=== PATIENT | female | born 1945 | race Caucasian/White ===

== ENCOUNTER 2018-01-10 11:44 | Inpatient (IN) ==
[2018-01-10] MEDS ORDERED: SODIUM CHLORIDE 0.9% 1,000 ML IV SCH (12:00)
[2018-01-10] MEDS ORDERED: CHLORHEXIDINE 4% SOLN 118 ML BOTTLE TOP SCH (15:00)
[2018-01-10] MEDS: CLORAZEPATE 7.5 MG TABLET PO SCH (16:18)
[2018-01-10 16:52] LABS: Basophils # 0.1 10*3/uL (0.0-0.2); Basophils % 0.5 % (0.0-0.8); Eosinophils # 0.2 10*3/uL (0.0-0.87); Eosinophils % 1.2 % (0.00-10.9); Hematocrit 28.1 VOL% (35.7-47.0); Immature Granulocytes % 0.7 %; Immature Granulocytes Absolute 0.09 #; Lymphocytes # 2.9 10*3/uL (1.4-4.0); Lymphocytes % 22.1 % (21.3-54.2); Mean Corpuscular Hemoglobin 31 PG (27-34); Mean Corpuscular Volume 96.6 FL (87-102); Mean Platelet Volume 10.6 FL (9.6-12.0); Monocytes # 1.6 10*3/uL (0.11-0.8); Monocytes % 11.8 % (1.7-12.7); Neutrophils # 8.4 10*3/uL (1.4-7.4); Neutrophils % 63.7 % (38.7-73.9); Platelet Count 195 T/CUMM (130-400); Red Blood Count 2.91 MC/CUMM (3.8-5.5); Red Cell Distribution Width 13.1 % (9.3-17.3); White Blood Count 13.1 T/CUMM (4-12)
[2018-01-10 17:11] LABS: Alanine Aminotransferase 25 U/L (13-56); Albumin 3.2 G/DL (3.4-5.0); Alkaline Phosphatase 75 U/L (45-117); Aspartate Amino Transferase 17 U/L (0-37); Bilirubin,Total < 0.39 MG/DL (0.2-1.0); Blood Urea Nitrogen 16 MG/DL (7-18); Calcium 8.3 MG/DL (8.5-10.1); Glucose 109 MG/DL (74-106); Osmolality,Calculated 282.3 MOS/KG (273-304); Potassium 4.2 MMOL/L (3.5-5.1); Sodium 141 MMOL/L (136-145); Total Protein 6.3 G/DL (6.4-8.3)
[2018-01-10] MEDS: CHLORHEXIDINE 0.12% ORAL RINSE 60 ML BOTTLE SWISH/SPIT SCH (22:09)
[2018-01-11] MEDS: ENOXAPARIN 40 MG/0.4 ML SYRINGE SUBCUT SCH (06:09)
[2018-01-11] MEDS ORDERED: SODIUM CHLORIDE 0.9% 1,000 ML IV PRN (07:24)
[2018-01-11] MEDS: CLORAZEPATE 7.5 MG TABLET PO SCH (08:48)
[2018-01-11] MEDS: CHLORHEXIDINE 0.12% ORAL RINSE 60 ML BOTTLE SWISH/SPIT SCH ×2 (08:48→21:24)
[2018-01-11] MEDS: CHLORHEXIDINE 4% SOLN 118 ML BOTTLE TOP SCH ×3 (13:31→21:23)
[2018-01-11 17:53] LABS: Hematocrit 32.9 VOL% (35.7-47.0); Hemoglobin 11.2 GM/DL (12.0-16.0)
[2018-01-12] MEDS ORDERED: HEPARIN/NACL 0.9% 2 UNITS/ML 500 ML IV ONE ×2 (05:15→11:47)
[2018-01-12] MEDS ORDERED: TRANEXAMIC ACID 1,000 MG/10 ML VIAL ONE (05:15)
[2018-01-12] MEDS ORDERED: NITROGLYCERIN DRIP 50 MG/250 ML BOTTLE IV ONE ×3 (05:15→11:48)
[2018-01-12] MEDS ORDERED: VANCOMYCIN 1,000 MG VIAL ONE (05:23)
[2018-01-12] MEDS ORDERED: TISSUE ADHESIVE 1 EACH APPLICATOR TOP ONE (05:23)
[2018-01-12] MEDS ORDERED: PAPAVERINE 60 MG/2 ML VIAL ONE (05:23)
[2018-01-12] MEDS ORDERED: SCOPOLAMINE 1.5 MG PATCH TRANSDERM ONE (05:30)
[2018-01-12 05:31] LABS: Hematocrit 35.1 VOL% (35.7-47.0); Hemoglobin 11.7 GM/DL (12.0-16.0)
[2018-01-12] MEDS: ENOXAPARIN 40 MG/0.4 ML SYRINGE SUBCUT SCH (05:43)
[2018-01-12] MEDS: CHLORHEXIDINE 4% SOLN 118 ML BOTTLE TOP SCH ×2 (05:43→09:09)
[2018-01-12] MEDS: CHLORHEXIDINE 0.12% ORAL RINSE 60 ML BOTTLE SWISH/SPIT SCH ×3 (05:44→20:24)
[2018-01-12] MEDS ORDERED: CEFUROXIME INJ 1,500 MG in SYRINGE 1 EACH IV ONE (06:00)
[2018-01-12] MEDS ORDERED: CALCIUM CHLORIDE 1,000 MG/10 ML SYRINGE IV ONE (07:10)
[2018-01-12] MEDS ORDERED: SODIUM BICARBONATE 50 MEQ/50 ML SYRINGE IV ONE ×2 (07:10→10:39)
[2018-01-12] MEDS ORDERED: ALBUMIN 5% 12.5 GM/250 ML VIAL IV ONE (07:11)
[2018-01-12] MEDS ORDERED: EPINEPHrine 1 MG/10 ML SYRINGE ONE (07:11)
[2018-01-12] MEDS ORDERED: POTASSIUM CHLORIDE RIDER 100 ML IV ONE (07:11)
[2018-01-12 07:51] LABS: ABG Base Excess 0.7 MMOL/L (-2.5-2.5); ABG HCO3 25.1 MMOL/L (20-26); ABG Oxygen Saturation 99.6 % (95-100); ABG PCO2 34.7 MM HG (35-48); ABG PH 7.453 (7.35-7.45); ABG TCO2 21.9 MMOL/L (23-27); Glucose Heart Surgery 134 MG/DL (74-106); Hematocrit Heart Surgery 31.9 PERCENT (37-47); Hemoglobin Heart Surgery 10.3 G/DL (12.0-16.0); Ionized Calcium Arterial 1.11 MMOL/L (1.21-1.46); PCO2 Patient Temp Arterial 34.7 MMHG; PH Patient Temp Arterial 7.453; Patient Temperature 37 CELCIUS; Potassium Heart/CVR 3.5 MMOL/L (3.5-5.1); Sodium Heart/CVR 139 MMOL/L (135-145)
[2018-01-12] MEDS: CLORAZEPATE 7.5 MG TABLET PO SCH (09:09)
[2018-01-12 09:19] LABS: PCO2 Patient Temp Venous 26.1 MM HG; PH Patient Temp Venous 7.549; PO2 Patient Temp Venous 34.8 MM HG; Potassium Heart/CVR 4.4 MMOL/L (3.5-5.1); VBG Base Excess 0.7 MEQ/L (0-4); VBG HCO3 24.9 MEQ/L (24-28); VBG Oxygen Saturation 83.7 %; VBG PCO2 30.1 MMHG (41-51); VBG PH 7.503; VBG PO2 42.7 MMHG (17-40)
[2018-01-12 09:20] LABS: Hematocrit Heart Surgery 17.3 PERCENT (37-47); Hemoglobin Heart Surgery 5.5 G/DL (12.0-16.0)
[2018-01-12 09:53] LABS: Hematocrit Heart Surgery 19.5 PERCENT (37-47); PCO2 Patient Temp Venous 35.2 MM HG; PH Patient Temp Venous 7.445; PO2 Patient Temp Venous 39.4 MM HG; VBG Base Excess 0.3 MEQ/L (0-4); VBG HCO3 24.5 MEQ/L (24-28); VBG Oxygen Saturation 75.8 %; VBG PCO2 35.2 MMHG (41-51); VBG PH 7.445; VBG PO2 39.4 MMHG (17-40)
[2018-01-12 09:54] LABS: Hemoglobin Heart Surgery 6.2 G/DL (12.0-16.0)
[2018-01-12] MEDS ORDERED: THROMBIN TOPICAL (RECOMBINANT) 5,000 UNIT VIAL TOP ONE (10:06)
[2018-01-12 10:21] LABS: ABG Base Excess -3.4 MMOL/L (-2.5-2.5); ABG HCO3 21.6 MMOL/L (20-26); ABG Oxygen Saturation 99.7 % (95-100); ABG PCO2 37.7 MM HG (35-48); ABG PH 7.366 (7.35-7.45); ABG TCO2 20.4 MMOL/L (23-27); Glucose Heart Surgery 329 MG/DL (74-106); Hematocrit Heart Surgery 22.7 PERCENT (37-47); Hemoglobin Heart Surgery 7.3 G/DL (12.0-16.0); Ionized Calcium Arterial 1.22 MMOL/L (1.21-1.46); PCO2 Patient Temp Arterial 37.7 MMHG; PH Patient Temp Arterial 7.366; Patient Temperature 37 CELCIUS; Potassium Heart/CVR 3.9 MMOL/L (3.5-5.1); Sodium Heart/CVR 131 MMOL/L (135-145)
[2018-01-12] MEDS ORDERED: PROTAMINE SULFATE 250 MG/25 ML VIAL IV ONE (10:39)
[2018-01-12] MEDS ORDERED: HEPARIN 10,000 UNIT/10 ML VIAL ONE (10:39)
[2018-01-12] MEDS ORDERED: methylPREDNISolone SOD SUC 1,000 MG/8 ML VIAL ONE (10:39)
[2018-01-12] MEDS ORDERED: ALBUMIN 25% 25 GM/100 ML VIAL IV ONE (10:39)
[2018-01-12] MEDS ORDERED: DEXTROSE 5% KCL 20 MEQ 20 MEQ/1,000 ML BAG IV ONE (10:39)
[2018-01-12] MEDS ORDERED: MAGNESIUM SULFATE 1 GM/2 ML VIAL ONE (10:39)
[2018-01-12] MEDS ORDERED: PROTAMINE SULFATE 50 MG/5 ML VIAL IV ONE (10:40)
[2018-01-12] MEDS ORDERED: FUROSEMIDE 20 MG/2 ML VIAL ONE (10:40)
[2018-01-12] MEDS ORDERED: MANNITOL 12.5 GM/50 ML VIAL IV ONE (10:40)
[2018-01-12] MEDS: SODIUM CHLORIDE 0.9% 1,000 ML IV SCH ×2 (10:51→20:24)
[2018-01-12] MEDS ORDERED: DEXTROSE 50% 25 GM/50 ML VIAL IV PRN ×2 (11:22)
[2018-01-12] MEDS ORDERED: SODIUM CHLORIDE 0.9% 250 ML IV PRN (11:22)
[2018-01-12] MEDS ORDERED: MIDAZOLAM 2 MG/2 ML VIAL IV PRN (11:22)
[2018-01-12] MEDS ORDERED: CALCIUM CHLORIDE 1,000 MG/10 ML SYRINGE IV PRN (11:22)
[2018-01-12] MEDS ORDERED: MORPHINE 10 MG/1 ML VIAL IV PRN (11:22)
[2018-01-12] MEDS ORDERED: CHLORHEXIDINE 4% SOLN 118 ML BOTTLE TOP PRN (11:22)
[2018-01-12] MEDS ORDERED: ACETAMINOPHEN 650 MG SUPP RECTAL PRN (11:22)
[2018-01-12] MEDS ORDERED: MAGNESIUM SULF RIDER 4 GM in PREMIX 1 EACH IV PRN (11:22)
[2018-01-12] MEDS ORDERED: ONDANSETRON 4 MG/2 ML VIAL IV PRN (11:22)
[2018-01-12] MEDS ORDERED: INSULIN REGULAR DRIP 100 ML IV SCH (11:30)
[2018-01-12] MEDS ORDERED: CHLORHEXIDINE 0.12% ORAL RINSE 60 ML BOTTLE SWISH/SPIT SCH (11:30)
[2018-01-12] MEDS ORDERED: CALCIUM CHLORIDE 1,000 MG/10 ML VIAL IV ONE (11:47)
[2018-01-12] MEDS ORDERED: SEVOFLURANE 1 UNIT/15 MINUTE INH ONE (11:47)
[2018-01-12 11:48] LABS: ABG Base Excess -0.3 MMOL/L (-2.5-2.5); ABG HCO3 24.1 MMOL/L (20-26); ABG Oxygen Saturation 98.4 % (95-100); ABG PCO2 41.3 MM HG (35-48); ABG PH 7.384 (7.35-7.45); ABG TCO2 22.6 MMOL/L (23-27); Glucose Heart Surgery 258 MG/DL (74-106); Hematocrit Heart Surgery 29.5 PERCENT (37-47); Hemoglobin Heart Surgery 9.5 G/DL (12.0-16.0); Potassium Heart/CVR 3.4 MMOL/L (3.5-5.1)
[2018-01-12] MEDS ORDERED: ePHEDrine 50 MG/ML AMP ONE (11:48)
[2018-01-12] MEDS ORDERED: ESMOLOL 100 MG/10 ML VIAL IV ONE (11:48)
[2018-01-12] MEDS ORDERED: PHENYLEPHRINE 10 MG/1 ML VIAL IV ONE (11:48)
[2018-01-12] MEDS ORDERED: MIDAZOLAM 10 MG/2 ML VIAL ONE (11:48)
[2018-01-12] MEDS ORDERED: SODIUM CHLORIDE 0.9% 2,000 ML IV ONE (11:48)
[2018-01-12] MEDS ORDERED: LACTATED RINGERS 2,000 ML IV ONE (11:48)
[2018-01-12] MEDS ORDERED: VECURONIUM 10 MG VIAL IV ONE (11:48)
[2018-01-12] MEDS ORDERED: ETOMIDATE 40 MG/20 ML VIAL IV ONE (11:48)
[2018-01-12] MEDS ORDERED: SODIUM CHLORIDE 0.9% 200 ML IV ONE (11:48)
[2018-01-12 11:51] LABS: Red Cell Distribution Width 15.1 % (9.3-17.3)
[2018-01-12 11:56] LABS: Basophils # 0.1 10*3/uL (0.0-0.2); Basophils % 0.4 % (0.0-0.8); Eosinophils # 0.1 10*3/uL (0.0-0.87); Eosinophils % 0.6 % (0.00-10.9); Hematocrit 27.6 VOL% (35.7-47.0); Immature Granulocytes % 1.5 %; Immature Granulocytes Absolute 0.29 #; Lymphocytes # 1.8 10*3/uL (1.4-4.0); Lymphocytes % 9.6 % (21.3-54.2); Mean Corpuscular HGB Conc 34.4 GM/DL (32-36); Mean Corpuscular Hemoglobin 31 PG (27-34); Mean Corpuscular Volume 90.2 FL (87-102); Mean Platelet Volume 10.2 FL (9.6-12.0); Monocytes # 1.2 10*3/uL (0.11-0.8); Monocytes % 6.4 % (1.7-12.7); Neutrophils # 15.3 10*3/uL (1.4-7.4); Neutrophils % 81.5 % (38.7-73.9); Red Blood Count 3.06 MC/CUMM (3.8-5.5)
[2018-01-12 11:59] LABS: Hemoglobin 9.5 GM/DL (12.0-16.0); Platelet Count 132 T/CUMM (130-400); White Blood Count 18.8 T/CUMM (4-12)
[2018-01-12 12:02] LABS: INR 1.1; PT Patient Result 11.8 SECS; Partial Thromboplastin Time 28.1 SECS (0-40)
[2018-01-12 12:11] LABS: Band Neutrophils 14 % (0-10); Lymphocytes 12 % (20-55); Segmented Neutrophils 70 % (50-85); Total Cells Counted 100
[2018-01-12 12:12] LABS: Lactic Acid 4.2 MMOL/L (0.4-2.0); Microcytosis 1+; Platelet Estimate Adequate
[2018-01-12 12:19] LABS: Blood Urea Nitrogen 14 MG/DL (7-18); Calcium 7.3 MG/DL (8.5-10.1); Glucose 235 MG/DL (74-106); Osmolality,Calculated 285.5 MOS/KG (273-304); Potassium 3.6 MMOL/L (3.5-5.1); Sodium 139 MMOL/L (136-145)
[2018-01-12] MEDS: POTASSIUM CHLORIDE RIDER 20 MEQ in PREMIX 1 EACH IV PRN ×3 (12:20→22:30)
[2018-01-12] MEDS: SODIUM CHLORIDE 0.45% 1,000 ML IV SCH ×3 (12:21→23:26)
[2018-01-12] MEDS ORDERED: METOPROLOL TARTRATE 5 MG/5 ML VIAL IV ONE (13:12)
[2018-01-12] MEDS: NITROGLYCERIN DRIP 50 MG/250 ML BOTTLE IV PRN ×2 (13:15→23:04)
[2018-01-12] MEDS: ALBUMIN 5% 12.5 GM in PREMIX 1 EACH IV PRN ×3 (14:37→16:24)
[2018-01-12] MEDS ORDERED: ASPIRIN 325 MG TABLET PO ONE (14:46)
[2018-01-12] MEDS ORDERED: CALCIUM GLUCONATE 2,000 MG in SODIUM CHLORIDE 0.9% 100 ML IV ONE (14:59)
[2018-01-12 15:28] LABS: ABG Base Excess -0.5 MMOL/L (-2.5-2.5); ABG HCO3 24.2 MMOL/L (20-26); ABG Oxygen Saturation 98.2 % (95-100); ABG PO2 147.6 MM HG (80-95); ABG TCO2 25.4 MMOL/L (23-27); Glucose Heart Surgery 184 MG/DL (74-106); Hemoglobin Heart Surgery 9.7 G/DL (12.0-16.0); Potassium Heart/CVR 4.1 MMOL/L (3.5-5.1)
[2018-01-12] MEDS: INSULIN REGULAR 100 UNIT/ML IV PRN ×2 (15:57→20:21)
[2018-01-12] MEDS ORDERED: LACTATED RINGERS 500 ML IV ONE (16:00)
[2018-01-12] MEDS: MORPHINE 4 MG/1 ML VIAL IV PRN ×3 (16:51→22:45)
[2018-01-12 18:20] LABS: ABG Base Excess -0.3 MMOL/L (-2.5-2.5); ABG HCO3 24.3 MMOL/L (20-26); ABG Oxygen Saturation 96.8 % (95-100); ABG PCO2 39.3 MM HG (35-48); ABG PH 7.409 (7.35-7.45); ABG PO2 99.7 MM HG (80-95); ABG TCO2 25.5 MMOL/L (23-27); Glucose Heart Surgery 152 MG/DL (74-106); Hemoglobin Heart Surgery 8.7 G/DL (12.0-16.0); Potassium Heart/CVR 3.9 MMOL/L (3.5-5.1)
[2018-01-12] MEDS: CEFUROXIME INJ 1,500 MG in SYRINGE 1 EACH IV SCH (20:15)
[2018-01-12] MEDS: POTASSIUM CHLORIDE RIDER 10 MEQ in PREMIX 1 EACH IV PRN (23:23)
[2018-01-13] MEDS: SODIUM CHLORIDE 0.45% 1,000 ML IV SCH ×2 (01:11→07:30)
[2018-01-13 02:45] LABS: Basophils % 0.2 % (0.0-0.8); Hemoglobin 7.9 GM/DL (12.0-16.0); Immature Granulocytes % 1.5 %; Immature Granulocytes Absolute 0.25 #; Lymphocytes # 1.1 10*3/uL (1.4-4.0); Lymphocytes % 6.2 % (21.3-54.2); Mean Corpuscular HGB Conc 34.3 GM/DL (32-36); Mean Corpuscular Hemoglobin 30 PG (27-34); Mean Corpuscular Volume 88.5 FL (87-102); Mean Platelet Volume 10.5 FL (9.6-12.0); Monocytes # 0.9 10*3/uL (0.11-0.8); Monocytes % 5.1 % (1.7-12.7); Neutrophils # 14.8 10*3/uL (1.4-7.4); Platelet Count 124 T/CUMM (130-400); Red Cell Distribution Width 15.4 % (9.3-17.3)
[2018-01-13] MEDS: MAGNESIUM SULF RIDER 2 GM in PREMIX 1 EACH IV PRN ×2 (02:45→04:48)
[2018-01-13] MEDS: NITROGLYCERIN DRIP 50 MG/250 ML BOTTLE IV PRN (03:59)
[2018-01-13] MEDS ORDERED: FUROSEMIDE 40 MG/4 ML VIAL IV ONE (06:30)
[2018-01-13] MEDS ORDERED: METOPROLOL TARTRATE 5 MG/5 ML VIAL IV ONE (06:30)
[2018-01-13] MEDS: CHLORHEXIDINE 0.12% ORAL RINSE 60 ML BOTTLE SWISH/SPIT SCH ×2 (09:15→21:28)
[2018-01-13] MEDS: CLOPIDOGREL 75 MG TABLET PO SCH (09:15)
[2018-01-13] MEDS: CARVEDILOL 3.125 MG TABLET PO SCH ×2 (09:15→21:26)
[2018-01-13] MEDS: CEFUROXIME INJ 1,500 MG in SYRINGE 1 EACH IV SCH ×2 (09:20→21:31)
[2018-01-13] MEDS: FUROSEMIDE 40 MG TABLET PO SCH (10:55)
[2018-01-13] MEDS: ATORVASTATIN 40 MG TABLET PO SCH ×2 (10:55→21:26)
[2018-01-13] MEDS: ASPIRIN EC 325 MG TABLET PO SCH (10:55)
[2018-01-13] MEDS ORDERED: SODIUM CHLORIDE 0.9% 1,000 ML IV PRN ×2 (11:55→11:56)
[2018-01-13] MEDS ORDERED: MAGNESIUM SULF RIDER 2 GM in PREMIX 1 EACH IV PRN (14:57)
[2018-01-13] MEDS ORDERED: MAGNESIUM SULF RIDER 4 GM in PREMIX 1 EACH IV PRN (14:57)
[2018-01-13] MEDS ORDERED: GLUCAGON 1 MG VIAL IM PRN (16:09)
[2018-01-13] MEDS ORDERED: DEXTROSE 50% 25 GM/50 ML VIAL IV PRN (16:09)
[2018-01-13] MEDS: INSULIN LISPRO 100 UNIT/ML SUBCUT SCH ×2 (18:12→21:52)
[2018-01-13 18:55] LABS: Hematocrit 29.1 VOL% (35.7-47.0); Hemoglobin 9.9 GM/DL (12.0-16.0)
[2018-01-14 05:44] LABS: Basophils % 0.2 % (0.0-0.8); Hematocrit 27.6 VOL% (35.7-47.0); Hemoglobin 9.5 GM/DL (12.0-16.0); Immature Granulocytes % 1.1 %; Immature Granulocytes Absolute 0.21 #; Lymphocytes # 1.4 10*3/uL (1.4-4.0); Lymphocytes % 7.3 % (21.3-54.2); Mean Corpuscular HGB Conc 34.4 GM/DL (32-36); Mean Corpuscular Hemoglobin 30 PG (27-34); Mean Corpuscular Volume 87.3 FL (87-102); Mean Platelet Volume 10.7 FL (9.6-12.0); Monocytes # 1.7 10*3/uL (0.11-0.8); Monocytes % 8.9 % (1.7-12.7); Neutrophils # 15.9 10*3/uL (1.4-7.4); Neutrophils % 82.5 % (38.7-73.9); Platelet Count 153 T/CUMM (130-400); Red Blood Count 3.16 MC/CUMM (3.8-5.5); Red Cell Distribution Width 15.9 % (9.3-17.3); White Blood Count 19.3 T/CUMM (4-12)
[2018-01-14 06:15] LABS: Calcium 7.7 MG/DL (8.5-10.1); Osmolality,Calculated 283.4 MOS/KG (273-304); Potassium 4.4 MMOL/L (3.5-5.1)
[2018-01-14 06:20] LABS: Risk Ratio 2.87; VLDL CHOLESTEROL 15.6 MG/DL
[2018-01-14] MEDS ORDERED: FUROSEMIDE 40 MG/4 ML VIAL IV ONE (07:00)
[2018-01-14] MEDS: INSULIN LISPRO 100 UNIT/ML SUBCUT SCH ×4 (08:07→21:29)
[2018-01-14] MEDS: CARVEDILOL 3.125 MG TABLET PO SCH ×2 (08:35→21:29)
[2018-01-14] MEDS: FUROSEMIDE 40 MG TABLET PO SCH (08:35)
[2018-01-14] MEDS: CLOPIDOGREL 75 MG TABLET PO SCH (08:35)
[2018-01-14] MEDS: ASPIRIN EC 325 MG TABLET PO SCH (08:35)
[2018-01-14] MEDS: LEVOFLOXACIN INJ 750 MG in PREMIX 1 EACH IV SCH (08:36)
[2018-01-14] MEDS: CHLORHEXIDINE 0.12% ORAL RINSE 60 ML BOTTLE SWISH/SPIT SCH ×2 (08:44→21:29)
[2018-01-14] MEDS: CEFUROXIME INJ 1,500 MG in SYRINGE 1 EACH IV SCH ×2 (08:44→21:30)
[2018-01-14] MEDS: ATORVASTATIN 40 MG TABLET PO SCH (21:29)
[2018-01-15 05:50] LABS: Basophils # 0.1 10*3/uL (0.0-0.2); Basophils % 0.3 % (0.0-0.8); Eosinophils # 0.1 10*3/uL (0.0-0.87); Eosinophils % 0.3 % (0.00-10.9); Hematocrit 31.2 VOL% (35.7-47.0); Hemoglobin 10.2 GM/DL (12.0-16.0); Immature Granulocytes % 1.9 %; Immature Granulocytes Absolute 0.33 #; Lymphocytes % 17.2 % (21.3-54.2); Mean Corpuscular HGB Conc 32.7 GM/DL (32-36); Mean Corpuscular Hemoglobin 30 PG (27-34); Mean Corpuscular Volume 90.7 FL (87-102); Mean Platelet Volume 10.5 FL (9.6-12.0); Monocytes % 11.7 % (1.7-12.7); NRBC # 0.04 10*3/uL; Neutrophils # 11.8 10*3/uL (1.4-7.4); Neutrophils % 68.6 % (38.7-73.9); Platelet Count 210 T/CUMM (130-400); Red Blood Count 3.44 MC/CUMM (3.8-5.5); Red Cell Distribution Width 15.9 % (9.3-17.3); White Blood Count 17.2 T/CUMM (4-12)
[2018-01-15] MEDS: LEVOFLOXACIN INJ 750 MG in PREMIX 1 EACH IV SCH (06:00)
[2018-01-15 06:15] LABS: Osmolality,Calculated 282.4 MOS/KG (273-304); Potassium 3.8 MMOL/L (3.5-5.1)
[2018-01-15] MEDS: INSULIN LISPRO 100 UNIT/ML SUBCUT SCH ×4 (08:46→21:03)
[2018-01-15] MEDS ORDERED: FUROSEMIDE 40 MG/4 ML VIAL IV ONE (09:36)
[2018-01-15] MEDS ORDERED: ALBUTEROL/IPRATROPIUM 3 ML NEB RESP TX PRN (09:37)
[2018-01-15] MEDS: CLOPIDOGREL 75 MG TABLET PO SCH (10:21)
[2018-01-15] MEDS: ASPIRIN EC 325 MG TABLET PO SCH (10:21)
[2018-01-15] MEDS: CLORAZEPATE 7.5 MG TABLET PO PRN ×2 (10:21→21:47)
[2018-01-15] MEDS: CARVEDILOL 3.125 MG TABLET PO SCH ×2 (10:21→20:58)
[2018-01-15] MEDS: FUROSEMIDE 40 MG TABLET PO SCH ×2 (10:21→10:25)
[2018-01-15] MEDS: CHLORHEXIDINE 0.12% ORAL RINSE 60 ML BOTTLE SWISH/SPIT SCH ×2 (10:22→21:04)
[2018-01-15] MEDS: CEFUROXIME INJ 1,500 MG in SYRINGE 1 EACH IV SCH ×2 (10:22→21:04)
[2018-01-15] MEDS: PANTOPRAZOLE 40 MG TABLET PO SCH (10:28)
[2018-01-15] MEDS: POTASSIUM CHLORIDE RIDER 20 MEQ in PREMIX 1 EACH IV PRN (14:39)
[2018-01-15] MEDS: POTASSIUM CHLORIDE RIDER 10 MEQ in PREMIX 1 EACH IV PRN (17:00)
[2018-01-15] MEDS: ATORVASTATIN 40 MG TABLET PO SCH (20:58)
[2018-01-16 06:08] LABS: Basophils # 0.1 10*3/uL (0.0-0.2); Basophils % 0.5 % (0.0-0.8); Eosinophils # 0.3 10*3/uL (0.0-0.87); Eosinophils % 1.9 % (0.00-10.9); Hematocrit 31.5 VOL% (35.7-47.0); Hemoglobin 10.3 GM/DL (12.0-16.0); Immature Granulocytes % 2.5 %; Immature Granulocytes Absolute 0.43 #; Lymphocytes # 2.7 10*3/uL (1.4-4.0); Lymphocytes % 15.3 % (21.3-54.2); Mean Corpuscular HGB Conc 32.7 GM/DL (32-36); Mean Corpuscular Hemoglobin 30 PG (27-34); Mean Corpuscular Volume 90.5 FL (87-102); Mean Platelet Volume 9.9 FL (9.6-12.0); Monocytes # 1.9 10*3/uL (0.11-0.8); Monocytes % 10.7 % (1.7-12.7); NRBC # 0.02 10*3/uL; Neutrophils # 12.1 10*3/uL (1.4-7.4); Neutrophils % 69.1 % (38.7-73.9); Platelet Count 247 T/CUMM (130-400); Red Blood Count 3.48 MC/CUMM (3.8-5.5); Red Cell Distribution Width 15.4 % (9.3-17.3); White Blood Count 17.5 T/CUMM (4-12)
[2018-01-16] MEDS: LEVOFLOXACIN INJ 750 MG in PREMIX 1 EACH IV SCH (06:09)
[2018-01-16 06:43] LABS: Calcium 8.2 MG/DL (8.5-10.1); Osmolality,Calculated 279.5 MOS/KG (273-304); Potassium 4.2 MMOL/L (3.5-5.1)
[2018-01-16] MEDS: ASPIRIN EC 325 MG TABLET PO SCH (09:06)
[2018-01-16] MEDS: CEFUROXIME INJ 1,500 MG in SYRINGE 1 EACH IV SCH ×2 (09:06→20:26)
[2018-01-16] MEDS: CLOPIDOGREL 75 MG TABLET PO SCH (09:07)
[2018-01-16] MEDS: INSULIN LISPRO 100 UNIT/ML SUBCUT SCH ×4 (09:07→21:26)
[2018-01-16] MEDS: FUROSEMIDE 40 MG TABLET PO SCH (09:07)
[2018-01-16] MEDS: PANTOPRAZOLE 40 MG TABLET PO SCH (09:07)
[2018-01-16] MEDS: CLORAZEPATE 7.5 MG TABLET PO PRN (09:07)
[2018-01-16] MEDS: CARVEDILOL 3.125 MG TABLET PO SCH ×2 (09:07→20:27)
[2018-01-16] MEDS: CHLORHEXIDINE 0.12% ORAL RINSE 60 ML BOTTLE SWISH/SPIT SCH ×2 (09:07→20:27)
[2018-01-16] MEDS: ATORVASTATIN 40 MG TABLET PO SCH (20:27)
[2018-01-17 05:13] LABS: Basophils # 0.1 10*3/uL (0.0-0.2); Basophils % 0.6 % (0.0-0.8); Eosinophils # 0.6 10*3/uL (0.0-0.87); Eosinophils % 2.9 % (0.00-10.9); Hematocrit 32.4 VOL% (35.7-47.0); Hemoglobin 10.6 GM/DL (12.0-16.0); Immature Granulocytes % 3.4 %; Immature Granulocytes Absolute 0.66 #; Lymphocytes # 2.8 10*3/uL (1.4-4.0); Lymphocytes % 14.8 % (21.3-54.2); Mean Corpuscular HGB Conc 32.7 GM/DL (32-36); Mean Corpuscular Hemoglobin 30 PG (27-34); Monocytes % 10.4 % (1.7-12.7); Neutrophils # 13.1 10*3/uL (1.4-7.4); Neutrophils % 67.9 % (38.7-73.9); Platelet Count 289 T/CUMM (130-400); Red Blood Count 3.56 MC/CUMM (3.8-5.5); White Blood Count 19.2 T/CUMM (4-12)
[2018-01-17 05:51] LABS: Calcium 8.7 MG/DL (8.5-10.1); Osmolality,Calculated 278.7 MOS/KG (273-304); Potassium 3.9 MMOL/L (3.5-5.1)
[2018-01-17 06:17] LABS: Atypical Lymphocytes 1+; Band Neutrophils 11 % (0-10); Lymphocytes 12 % (20-55); Platelet Estimate Normal; Segmented Neutrophils 69 % (50-85); Total Cells Counted 100
[2018-01-17 06:18] LABS: Macrocytosis 1+
[2018-01-17] MEDS: LEVOFLOXACIN INJ 750 MG in PREMIX 1 EACH IV SCH (06:41)
[2018-01-17] MEDS: INSULIN LISPRO 100 UNIT/ML SUBCUT SCH (09:02)
[2018-01-17] MEDS: FUROSEMIDE 40 MG TABLET PO SCH (09:03)
[2018-01-17] MEDS: CLOPIDOGREL 75 MG TABLET PO SCH (09:03)
[2018-01-17] MEDS: CEFUROXIME INJ 1,500 MG in SYRINGE 1 EACH IV SCH (09:03)
[2018-01-17] MEDS: ASPIRIN EC 325 MG TABLET PO SCH (09:03)
[2018-01-17] MEDS: PANTOPRAZOLE 40 MG TABLET PO SCH (09:03)
[2018-01-17] MEDS: CHLORHEXIDINE 0.12% ORAL RINSE 60 ML BOTTLE SWISH/SPIT SCH (09:03)
[2018-01-17] MEDS: CARVEDILOL 3.125 MG TABLET PO SCH (09:06)
[2018-01-17 12:12] VITALS: BP 109/66
[2018-01-18] MEDS ORDERED: metFORMIN 500 MG TABLET PO SCH (08:00)
== END 2018-01-17 14:00 | disposition home health service (06) | DRG 236 ==
LOC: N.TELEN 14:54 → N.CVR 01-12 11:06 → N.TELES 01-13 11:19
PROVIDERS: ADMIT Thoracic Surgery (Cardiothoracic Vascular Surgery); ATTEND Thoracic Surgery (Cardiothoracic Vascular Surgery)

== ENCOUNTER 2022-08-14 13:47 | Inpatient (IN) ==
[2022-08-14] MEDS ORDERED: TICAGRELOR 90 MG TABLET ONE ×2 (14:11→15:05)
[2022-08-14] MEDS ORDERED: ENOXAPARIN 60 MG/0.6 ML SYRINGE ONE (14:11)
[2022-08-14] MEDS ORDERED: ASPIRIN 325 MG TABLET ONE (14:11)
[2022-08-14] MEDS ORDERED: ASPIRIN 325 MG TABLET PO STA (14:17)
[2022-08-14] MEDS ORDERED: MORPHINE 2 MG/1 ML SYRINGE IV STA ×2 (14:17→14:52)
[2022-08-14] MEDS ORDERED: ONDANSETRON 4 MG/2 ML VIAL IV STA (14:17)
[2022-08-14] MEDS ORDERED: HEPARIN 5,000 UNIT/1 ML VIAL IV ONE (14:17)
[2022-08-14] MEDS ORDERED: ONDANSETRON 4 MG/2 ML VIAL ONE (14:19)
[2022-08-14] MEDS ORDERED: HEPARIN/NACL 0.9% 2 UNITS/ML 2,000 UNIT/1,000 ML BAG IV ONE (14:19)
[2022-08-14] MEDS ORDERED: MORPHINE 2 MG/1 ML SYRINGE ONE (14:19)
[2022-08-14 14:26] LABS: Basophils # 0.1 10*3/uL (0.0-0.2); Basophils % 0.4 % (0.0-0.8); Eosinophils % 0.1 % (0.00-10.9); Hematocrit 44.6 VOL% (35.7-47.0); Hemoglobin 14.3 GM/DL (12.0-16.0); Immature Granulocytes % 0.3 %; Immature Granulocytes Absolute 0.04 #; Lymphocytes # 1.8 10*3/uL (1.4-4.0); Lymphocytes % 12.7 % (21.3-54.2); Mean Corpuscular HGB Conc 32.1 GM/DL (32-36); Mean Corpuscular Volume 97.6 FL (87-102); Mean Platelet Volume 10.2 FL (9.6-12.0); Monocytes # 0.8 10*3/uL (0.11-0.8); Monocytes % 5.5 % (1.7-12.7); Platelet Count 215 T/CUMM (130-400); Red Blood Count 4.57 MC/CUMM (3.8-5.5); Red Cell Distribution Width 12.4 % (9.3-17.3); White Blood Count 14.1 T/CUMM (4-12)
[2022-08-14 14:40] LABS: INR 1.1; PT Patient Result 11.9 SECS (10.1-12.1)
[2022-08-14] MEDS ORDERED: MIDAZOLAM 2 MG/2 ML VIAL ONE (14:41)
[2022-08-14] MEDS ORDERED: HYDROmorphone 1 MG/1 ML SYRINGE ONE (14:41)
[2022-08-14 14:42] LABS: Albumin 3.8 G/DL (3.4-5.0); Bilirubin,Total 0.6 MG/DL (0.20-1.00); Calcium 9.2 MG/DL (8.5-10.1); Osmolality,Calculated 275.8 MOS/KG (273-304); Potassium 4.2 MMOL/L (3.5-5.1); Total Protein 7.1 G/DL (6.4-8.2)
[2022-08-14] MEDS ORDERED: TIROFIBAN 5,000 MCG/100 ML PREMIX IV ONE (14:49)
[2022-08-14] MEDS ORDERED: TIROFIBAN 5,000 MCG/100 ML PREMIX IV SCH (15:15)
[2022-08-14] MEDS ORDERED: MORPHINE 2 MG/1 ML SYRINGE IV PRN (15:25)
[2022-08-14] MEDS ORDERED: hydrALAZINE 20 MG/1 ML VIAL IV PRN (15:25)
[2022-08-14] MEDS ORDERED: DOCUSATE SODIUM 100 MG CAPSULE PO PRN (15:25)
[2022-08-14] MEDS ORDERED: ZALEPLON 5 MG CAPSULE PO PRN (15:25)
[2022-08-14] MEDS ORDERED: MAGNESIUM SULF RIDER 2 GM/50 ML PREMIX IV PRN (15:25)
[2022-08-14] MEDS ORDERED: MAGNESIUM SULF RIDER 4 GM/100 ML PREMIX IV PRN (15:25)
[2022-08-14] MEDS ORDERED: PROMETHAZINE 25 MG TABLET PO PRN (15:25)
[2022-08-14] MEDS ORDERED: POTASSIUM CHLORIDE 20 MEQ TABLET PO PRN (15:25)
[2022-08-14] MEDS ORDERED: guaiFENesin/DM ER 600-30 MG TABLET PO PRN (15:25)
[2022-08-14] MEDS ORDERED: diphenhydrAMINE CAP 25 MG CAPSULE PO PRN (15:25)
[2022-08-14] MEDS ORDERED: ACETAMINOPHEN 325 MG TABLET PO PRN (15:25)
[2022-08-14] MEDS ORDERED: ALUMINUM/MAGNES/SIMETH MAX STR 30 ML UDCUP PO PRN (15:25)
[2022-08-14] MEDS ORDERED: ONDANSETRON 4 MG/2 ML VIAL IV PRN (15:25)
[2022-08-14] MEDS ORDERED: SODIUM CHLORIDE 0.9% 1,000 ML IV SCH (15:30)
[2022-08-14] MEDS ORDERED: SODIUM CHLORIDE 0.9% 500 ML IV ONE ×2 (16:11→17:07)
[2022-08-14] MEDS: ATORVASTATIN 80 MG TABLET PO SCH (20:20)
[2022-08-14] MEDS: TICAGRELOR 90 MG TABLET PO SCH (20:20)
[2022-08-14] MEDS: carvediloL 3.125 MG TABLET PO SCH (20:20)
[2022-08-14] MEDS: LOSARTAN 25 MG TABLET PO SCH (20:20)
[2022-08-14] MEDS: EZETIMIBE 10 MG TABLET PO SCH (20:20)
[2022-08-14] MEDS: PANTOPRAZOLE 40 MG TABLET PO SCH (20:22)
[2022-08-15 03:56] LABS: Basophils % 0.3 % (0.0-0.8); Eosinophils # 0.1 10*3/uL (0.0-0.87); Eosinophils % 1.1 % (0.00-10.9); Hematocrit 36.1 VOL% (35.7-47.0); Hemoglobin 11.1 GM/DL (12.0-16.0); Immature Granulocytes % 0.2 %; Immature Granulocytes Absolute 0.02 #; Lymphocytes # 2.1 10*3/uL (1.4-4.0); Lymphocytes % 22.5 % (21.3-54.2); Mean Corpuscular HGB Conc 30.7 GM/DL (32-36); Mean Corpuscular Volume 101.1 FL (87-102); Mean Platelet Volume 10.3 FL (9.6-12.0); Neutrophils % 64.9 % (38.7-73.9); Platelet Count 164 T/CUMM (130-400); Red Blood Count 3.57 MC/CUMM (3.8-5.5); Red Cell Distribution Width 12.6 % (9.3-17.3); White Blood Count 9.4 T/CUMM (4-12)
[2022-08-15 04:23] LABS: Alanine Aminotransferase 26 U/L (13-56); Albumin 2.5 G/DL (3.4-5.0); Alkaline Phosphatase 85 U/L (45-117); Aspartate Amino Transferase 122 U/L (0-37); Bilirubin,Total < 0.39 MG/DL (0.20-1.00); Blood Urea Nitrogen 14 MG/DL (7-18); Calcium 7.5 MG/DL (8.5-10.1); Carbon Dioxide 26 MMOL/L (21-32); Chloride 115 MMOL/L (98-107); Cholesterol 109 MG/DL (50-200); Glucose 109 MG/DL (74-106); HDL Cholesterol 37 MG/DL (40-60); Osmolality,Calculated 287.8 MOS/KG (273-304); Potassium 3.8 MMOL/L (3.5-5.1); Risk Ratio 2.95; Sodium 144 MMOL/L (136-145); Triglycerides 121 MG/DL (2-150); VLDL Cholesterol 24.2 MG/DL
[2022-08-15] MEDS: PANTOPRAZOLE 40 MG TABLET PO SCH ×2 (08:10→20:51)
[2022-08-15] MEDS: ASPIRIN EC 81 MG TABLET PO SCH (08:10)
[2022-08-15] MEDS: TICAGRELOR 90 MG TABLET PO SCH ×2 (08:10→20:52)
[2022-08-15] MEDS ORDERED: ALPRAZolam 0.5 MG TABLET PO PRN (08:34)
[2022-08-15] MEDS: DULoxetine 30 MG CAPSULE PO SCH (08:48)
[2022-08-15 08:49] LABS: CKMB % 11.58 %; High Sensitive Troponin I* 38152.2 ng/L (0-54)
[2022-08-15] MEDS: LOSARTAN 25 MG TABLET PO SCH ×2 (09:00→20:54)
[2022-08-15] MEDS: carvediloL 3.125 MG TABLET PO SCH ×2 (09:00→20:53)
[2022-08-15] MEDS ORDERED: PANTOPRAZOLE 40 MG TABLET PO SCH (09:00)
[2022-08-15] MEDS: ATORVASTATIN 80 MG TABLET PO SCH (20:51)
[2022-08-15] MEDS: EZETIMIBE 10 MG TABLET PO SCH (20:52)
[2022-08-16 05:35] LABS: Basophils % 0.4 % (0.0-0.8); Eosinophils # 0.2 10*3/uL (0.0-0.87); Eosinophils % 2.2 % (0.00-10.9); Hematocrit 35.5 VOL% (35.7-47.0); Hemoglobin 11.6 GM/DL (12.0-16.0); Immature Granulocytes % 0.4 %; Immature Granulocytes Absolute 0.04 #; Mean Corpuscular HGB Conc 32.7 GM/DL (32-36); Mean Corpuscular Volume 96.7 FL (87-102); Mean Platelet Volume 10.5 FL (9.6-12.0); Monocytes # 1.1 10*3/uL (0.11-0.8); Monocytes % 10.8 % (1.7-12.7); Neutrophils % 67.2 % (38.7-73.9); Platelet Count 168 T/CUMM (130-400); Red Blood Count 3.67 MC/CUMM (3.8-5.5); Red Cell Distribution Width 12.8 % (9.3-17.3); White Blood Count 10.5 T/CUMM (4-12)
[2022-08-16 05:58] LABS: Albumin 2.9 G/DL (3.4-5.0); Bilirubin,Total 0.9 MG/DL (0.20-1.00); Calcium 8.1 MG/DL (8.5-10.1); Osmolality,Calculated 284.8 MOS/KG (273-304); Potassium 3.5 MMOL/L (3.5-5.1); Total Protein 5.6 G/DL (6.4-8.2)
[2022-08-16] MEDS: ASPIRIN EC 81 MG TABLET PO SCH (10:32)
[2022-08-16] MEDS: DULoxetine 30 MG CAPSULE PO SCH (10:33)
[2022-08-16] MEDS: carvediloL 3.125 MG TABLET PO SCH (10:33)
[2022-08-16] MEDS: LOSARTAN 25 MG TABLET PO SCH (10:33)
[2022-08-16] MEDS: TICAGRELOR 90 MG TABLET PO SCH (10:33)
[2022-08-16] MEDS: PANTOPRAZOLE 40 MG TABLET PO SCH (10:33)
[2022-08-16 20:02] VITALS: BP 127/75
== END 2022-08-16 11:50 | disposition home or self-care (01) | DRG 247 ==
LOC: N.ED 13:47 → N.CC 14:27 → N.EDINP 14:55 → N.CC 15:40 → N.TELES 08-15 17:51
PROVIDERS: ADMIT Internal Medicine Cardiovascular Disease; ATTEND Internal Medicine Cardiovascular Disease